=== PATIENT | female | born 1945 | race Caucasian/White ===

== ENCOUNTER 2019-08-20 15:11 | Emergency (ER) | payer MEDICARE, BC ==
[2019-08-20] MEDS ORDERED: Sodium Chloride 0.9% 10 ML Syringe FLUSH PRN (15:30)
[2019-08-20] MEDS ORDERED: Sodium Chloride 0.9% 1,000 ML IV ONE (15:31)
[2019-08-20] MEDS ORDERED: Morphine 4 MG/ML Syringe IVPUSH ONE (15:31)
[2019-08-20] MEDS ORDERED: Ondansetron 4 MG/2 ML SDV IVPUSH ONE (15:31)
[2019-08-20 15:35] VITALS: BP 168/83; PULSE 61
--- NOTE | 2019-08-20 15:49 | EDM.PDOC ---
ED HPI GENERAL MEDICAL PROBLEM - General Chief Complaint: Gastrointestinal Problem Stated Complaint: STOMACH PAIN Time Seen by Provider: 08/20/19 15:20 Source of Information: Reports: Patient History Limitations: Reports: No Limitations - History of Present Illness INITIAL COMMENTS - FREE TEXT/NARRATIVE: Pt. presents to ER with complaints of nausea, vomiting, and epigastric dis comfort. Pt. states that the symptoms started yesterday. She vomited several times yesterday but not today. She states that she did eat some waffles at lunch today that made her feel worse. She also complaints of gaggy sensation in her throat. Denies any substernal chest discomfort. No jaw or arm pain. Denies shortness of breath or palpitations. Pt. states that she thinks she "has stomach flu". 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 She is status post cholecystectomy. Pt. states that she had a BM last night. She states that it was hard. Denies any melena, hematochezia, or hematemesis. Pt. denies any cough. She has not been around any ill contacts. No fever or chills. Pt. has a history of cardiomegaly. Echo in 2019 revealed EF of 65%. No LV wall motion abnormality. Trivial tricuspid, pulmonic, and mitral valve regurgitation. Onset Date: 08/19/19 Location: Reports: Neck, Abdomen Quality: Reports: Ache, Pressure Severity: Moderate Worsens with: Reports: Eating Associated Symptoms: Reports: Loss of Appetite, Nausea/Vomiting. Denies: Confusion, Chest Pain, Cough, Diaphoresis, Fever/Chills, Seizure, Shortness of Breath, Syncope Upper Abdomen Pain Score (Numeric/FACES): 7 - Related Data Allergies Allergy/AdvReac Type Severity Reaction Status Date / Time codeine Allergy Change Verified 08/20/19 15:31 Mental Status lisinopril Allergy Cough Verified 08/20/19 15:31 Home Meds: Home Meds Calcium Carb/Vit D3/Minerals [Calcium 1,200 mg Tablet Chew] 1 each PO BID 05/17/13 [History] FA/Lycopene/Lut/MV,Ca,Iron,Min [Centrum] 1 tab PO DAILY 05/17/13 [History] Losartan [Cozaar] 50 mg PO DAILY 05/17/13 [History] Potassium Chloride [Klor-Con 8] 16 meq PO DAILY 05/17/13 [History] atorvaSTATin [Lipitor] 10 mg PO BEDTIME 05/17/13 [History] Citalopram Hydrobromide [Celexa] 20 mg PO DAILY 08/20/19 [History] Furosemide [Lasix] 40 mg PO DAILY 08/20/19 [History] Metoprolol Tartrate [Lopressor] 37.5 mg PO BID 08/20/19 [History] Past Medical History Cardiovascular History: Reports: High Cholesterol, Hypertension Psychiatric History: Reports: Anxiety, Depression Oncologic (Cancer) History: Reports: Breast - Past Surgical History Musculoskeletal Surgical History: Reports: Knee Replacement Social & Family History - Living Situation & Occupation Living situation: Reports: Occupation: Employed ED ROS GENERAL - Review of Systems Review Of Systems: See Below Constitutional: Reports: No Symptoms HEENT: Reports: No Symptoms Respiratory: Reports: No Symptoms Cardiovascular: Reports: No Symptoms Endocrine: Reports: No Symptoms GI/Abdominal: Reports: Abdominal Pain, Anorexia : Reports: No Symptoms Musculoskeletal: Reports: No Symptoms Skin: Reports: No Symptoms Neurological: Reports: No Symptoms Psychiatric: Reports: No Symptoms Hematologic/Lymphatic: Reports: No Symptoms Immunologic: Reports: No Symptoms ED EXAM, GENERAL - Physical Exam Exam: See Below Exam Limited By: No Limitations General Appearance: Alert, WD/WN, No Apparent Distress Head: Atraumatic, Normocephalic Respiratory/Chest: No Respiratory Distress, Lungs Clear, Normal Breath Sounds, No Accessory Muscle Use, Chest Non-Tender Cardiovascular: Normal Peripheral Pulses, Regular Rate, Rhythm, No Edema, No JVD, No Murmur Peripheral Pulses: 4+: Radial (R) GI/Abdominal: Soft, No Organomegaly, No Distention, Tender (tender in epigastium) (Female) Exam: Deferred Rectal (Female) Exam: Deferred Back Exam: Normal Inspection, Full Range of Motion Extremities: Normal Inspection, Normal Range of Motion, Non-Tender, No Pedal Edema, Normal Capillary Refill Neurological: Alert, Oriented, CN II-XII Intact, Normal Cognition, Normal Gait, Normal Reflexes, No Motor/Sensory Deficits Psychiatric: Normal Affect, Normal Mood Skin Exam: Warm, Dry, Intact, Normal Color, No Rash Lymphatic: No Adenopathy EKG INTERPRETATION Rhythm: NSR Sproul: Normal P-Wave: Present QRS: Normal ST-T: Normal QT: Normal Course - Vital Signs Last Recorded V/S: Last Vital Signs Temp 36.2 C 08/20/19 15:20 Pulse 61 08/20/19 15:20 Resp 18 08/20/19 15:20 BP 168/83 H 08/20/19 15:20 Pulse Ox 96 08/20/19 15:20 - Orders/Labs/Meds Orders: Active Orders 24 hr Category Date Time Status EKG Documentation Completion [RC] STAT Care 08/20/19 15:30 Active CULTURE URINE [RM] Stat Lab 08/20/19 16:44 Received Peripheral IV Insertion Adult [OM.PC] Routine Oth 08/20/19 15:31 Ordered Labs: Laboratory Tests 08/20/19 08/20/19 08/20/19 Range/Units 15:47 15:47 15:47 WBC 6.1 (4.0-10.0) x10^3/uL RBC 4.33 (4.00-5.50) x10^6/uL Hgb 13.0 (12.0-16.0) g/dL Hct 38.7 (33.0-47.0) % MCV 89.4 (78.0-93.0) fL MCH 30.0 (26.0-32.0) pg MCHC 33.6 (32.0-36.0) g/dL RDW Coeff of Maria [place] Carm[place] 12.9 (10.0-15.0) % Plt Count 219 (130-400) x10^3/uL Neut % (Auto) 58.6 (50.0-80.0) % Lymph % (Auto) 29.7 (25.0-50.0) % [place] % (Auto) 10.0 (2.0-11.0) % Eos % (Auto) 1.0 (0.0-4.0) % Baso % (Auto) 0.7 (0.2-1.2) % PT 11.4 (9.5-12.3) SEC INR 1.1 L (2.0-3.5) Sodium 145 (136-145) mmol/L Potassium 3.3 L (3.5-5.1) mmol/L Chloride 106 (98-107) mmol/L Carbon Dioxide 34 H (21-32) mmol/L Anion Gap 8.3 L (10-20) mmol/L BUN 14 (7-18) mg/dL Creatinine 0.8 (0.55-1.02) mg/dL Est Cr Clr Drug Dosing TNP Estimated GFR (MDRD) > 60 Glucose 87 (74-106) mg/dL Calcium 8.8 (8.5-10.1) mg/dL Corrected Calcium 9.44 (8.5-10.1) mg/dL Total Bilirubin 0.6 (0.2-1.0) mg/dL AST 33 (15-37) U/L ALT 42 (14-59) U/L Alkaline Phosphatase 65 (46-116) U/L Troponin I < 0.017 (<=0.056) ng/mL C-Reactive Protein 0.4 (<=0.9) mg/dL Total Protein 6.8 (6.4-8.2) g/dL Albumin 3.2 L (3.4-5.0) g/dL Globulin 3.6 Albumin/Globulin Ratio 0.89 Amylase 58 (25-115) U/L Lipase 166 (73-393) U/L Urine Color (YELLOW) POC Urine Appearance (CLEAR) POC Urine pH (5.0-8.0) Ur Specific [place] (1.005-1.030) POC Urine Protein (NEGATIVE) POC Ur Glucose (UA) (NEGATIVE) POC Urine Ketones (NEGATIVE) POC Ur Occult Blood (NEGATIVE) POC Urine Nitrite (NEGATIVE) POC Urine Bilirubin (NEGATIVE) POC Urine Urobilinogen (0.2) POC U Leukocyte Esteras (NEGATIVE) SARS-CoV-2 RNA (RT-PCR) (NEGATIVE) 08/20/19 08/20/19 Range/Units 16:44 17:49 WBC (4.0-10.0) x10^3/uL RBC (4.00-5.50) x10^6/uL Hgb (12.0-16.0) g/dL Hct (33.0-47.0) % MCV (78.0-93.0) fL MCH (26.0-32.0) pg MCHC (32.0-36.0) g/dL RDW Coeff of Maria [place] Carmen (10.0-15.0) % Plt Count (130-400) x10^3/uL Neut % (Auto) (50.0-80.0) % Lymph % (Auto) (25.0-50.0) % [place] % (Auto) (2.0-11.0) % Eos % (Auto) (0.0-4.0) % Baso % (Auto) (0.2-1.2) % PT (9.5-12.3) SEC INR (2.0-3.5) Sodium (136-145) mmol/L Potassium (3.5-5.1) mmol/L Chloride (98-107) mmol/L Carbon Dioxide (21-32) mmol/L Anion Gap (10-20) mmol/L BUN (7-18) mg/dL Creatinine (0.55-1.02) mg/dL Est Cr Clr Drug Dosing Estimated GFR (MDRD) Glucose (74-106) mg/dL Calcium (8.5-10.1) mg/dL Corrected Calcium (8.5-10.1) mg/dL Total Bilirubin (0.2-1.0) mg/dL AST (15-37) U/L ALT (14-59) U/L Alkaline Phosphatase (46-116) U/L Troponin I (<=0.056) ng/mL C-Reactive Protein (<=0.9) mg/dL Total Protein (6.4-8.2) g/dL Albumin (3.4-5.0) g/dL Globulin Albumin/Globulin Ratio Amylase (25-115) U/L Lipase (73-393) U/L Urine Color Straw H (YELLOW) POC Urine Appearance Clear (CLEAR) POC Urine pH 8.0 (5.0-8.0) Ur Specific [place] 1.010 (1.005-1.030) POC Urine Protein Negative (NEGATIVE) POC Ur Glucose (UA) Negative (NEGATIVE) POC Urine Ketones Negative (NEGATIVE) POC Ur Occult Blood Negative (NEGATIVE) POC Urine Nitrite Negative (NEGATIVE) POC Urine Bilirubin Negative (NEGATIVE) POC Urine Urobilinogen 0.2 (0.2) POC U Leukocyte Esteras Small H (NEGATIVE) SARS-CoV-2 RNA (RT-PCR) Negative (NEGATIVE) Meds: Medications Discontinued Medications Generic Name Dose Route Start Last Admin Trade Name Freq PRN Reason Stop Dose Admin Hydromorphone HCl 1 mg 08/20/19 17:02 08/20/19 17:10 Dilaudid IVPUSH 08/20/19 17:03 1 mg ONETIME ONE Administration Sodium Chloride 1,000 mls @ 1,000 mls/hr 08/20/19 15:31 08/20/19 15:53 Normal Saline IV 08/20/19 16:30 1,000 mls/hr .BOLUS ONE Administration Iopamidol 100 ml 08/20/19 16:37 08/20/19 17:15 Isovue-300 (61%) IVPUSH 08/20/19 16:38 100 ml ONETIME ONE Administration Magnesium Hydroxide 30 ml 08/20/19 18:19 08/20/19 18:29 Milk Of Magnesia PO 08/20/19 18:20 30 ml ONETIME ONE Administration Metoclopramide HCl 5 mg 08/20/19 16:34 08/20/19 17:08 Reglan IVPUSH 08/20/19 16:35 5 mg ONETIME ONE Administration Morphine Sulfate 4 mg 08/20/19 15:31 08/20/19 15:55 Morphine IVPUSH 08/20/19 15:32 4 mg ONETIME ONE Administration Ondansetron HCl 4 mg 08/20/19 15:31 08/20/19 15:53 Zofran IVPUSH 08/20/19 15:32 4 mg ONETIME ONE Administration Sodium Chloride 10 ml 08/20/19 15:30 Saline Flush FLUSH ASDIRECTED PRN Keep Vein Open - Radiology Interpretation Free Text/Narrative:: CT chest abdomen and pelvis was obtained. Small volume of non-specific fluid in pelvis. Increased stool burden. Intrahepatic and extrahepatic bile duct dilatation has mildly increased relative to previous study. No other acute findings noted. - Re-Assessments/Exams Free Text/Narrative Re-Assessment/Exam: Pt. was given a liter of NS on arrival to ER. She was given zofran 4mg IV and morphine 4 mg IV. She reported significant improvement in her discomfort. Prior to going to x-ray, pt. reported significant increase in discomfort. Pain was localized to the LUQ. No rebound tenderness or mass noted. She was given dilaudid 1 mg IV and reglan 5 mg IV. She again reported improvement in her discomfort. Departure - Departure Time of Disposition: 18:37 Disposition: Home, Self-Care 01 Clinical Impression: Constipation - Discharge Information Instructions: Constipation, Adult Referrals: Monisha Babcock MD [Primary Care Provider] - Forms: ED Department Discharge Additional Instructions: Home to rest. Start miralax 17gm once daily starting tomorrow. Increase your consumption of water. Milk of mag 30ml three times daily. Recheck in clinic in 7-10 days, sooner if not gradually improving. Sepsis Event Note (ED) - Evaluation Sepsis Screening Result: No Definite Risk - Focused Exam Vital Signs: Vital Signs Temp Pulse Resp BP Pulse Ox 08/20/19 15:20 36.2 C 61 18 168/83 H 96 - Problem List Review Problem List Initiated/Reviewed/Updated: Yes - My Orders Last 24 Hours: My Active Orders 08/20/19 15:30 EKG Documentation Completion [RC] STAT 08/20/19 15:31 Peripheral IV Insertion Adult [OM.PC] Routine 08/20/19 16:44 CULTURE URINE [RM] Stat - Assessment/Plan Last 24 Hours: My Active Orders 08/20/19 15:30 EKG Documentation Completion [RC] STAT 08/20/19 15:31 Peripheral IV Insertion Adult [OM.PC] Routine 08/20/19 16:44 CULTURE URINE [RM] Stat Plan: Home to rest. Start miralax 17gm once daily starting tomorrow. Increase your consumption of water. Milk of mag 30ml three times daily. Recheck in clinic in 7-10 days, sooner if not gradually improving.
[2019-08-20 16:16] LABS: ANION GAP 8.3 mmol/L (10-20); CHLORIDE,CL 106 mmol/L (98-107); SODIUM,NA 145 mmol/L (136-145)
[2019-08-20] MEDS ORDERED: Metoclopramide 10 MG/2 ML SDV IVPUSH ONE (16:34)
[2019-08-20] MEDS ORDERED: Iopamidol 612 MG/ML 100 ML Bottle IVPUSH ONE (16:37)
[2019-08-20] MEDS ORDERED: HYDROmorphone 1 MG/ML Syringe IVPUSH ONE (17:02)
--- NOTE | 2019-08-20 17:43 | CT ---
[id number] CT/CT Chest Abdomen Pelvis W IV EXAM: CHEST ABDOMEN AND PELVIS CT WITH CONTRAST INDICATION: Abdominal pain, back pain and vomiting. COMPARISON: Abdomen and pelvis CT July 07, 2014. No comparison chest imaging. DISCUSSION: The right lobe is mildly prominent in size and there are scattered small bilateral thyroid nodules. 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 Mild cardiomegaly. Right hilar calcified lymph nodes, a calcified right lower lobe pulmonary nodule, and splenic calcifications are consistent with antecedent granulomatous disease. The gallbladder is surgically absent. Intra and extrahepatic bile duct dilation was present on the previous exam, but has increased. For instance, the common hepatic duct measures up to 26 mm relative to the previous of 19 mm. Correlation with clinical and laboratory data is suggested to help further exclude evidence of biliary obstruction. MRCP could provide further evaluation if there is clinical concern for obstruction. Gastric bypass. 8 mm left renal cyst. Numerous diverticula of the colon without CT evidence of acute diverticulitis. Small volume nonspecific free fluid in the pelvis. Incidental bicornuate uterus. The pancreas, adrenal glands, right kidney and remaining small bowel are normal in appearance. The appendix is not identified. There are least mild to moderate degenerative changes throughout the spine and there is evidence of diffuse idiopathic skeletal hyperostosis. IMPRESSION: 1. Small volume free fluid in the pelvis is nonspecific. 2. Mildly prominent colonic stool volume. 3. Intrahepatic and extrahepatic bile duct dilation has mildly increased relative to the previous study. These changes can be seen postcholecystectomy, but correlation with clinical and laboratory data is suggested to further exclude evidence of biliary obstruction. Morgan Garcia MD 08/20/19 [id number] Thank you for allowing us to participate in the care of your patient.
[2019-08-20] MEDS ORDERED: Magnesium Hydroxide 400 MG/5 ML Susp 30 ML Cup PO ONE (18:19)
== END 2019-08-20 18:37 | disposition home or self-care (01) ==
LOC: VM.ED 15:11
DX: K59.00 Constipation, unspecified (principal); R11.2 Nausea with vomiting, unspecified; I10 Essential (primary) hypertension; E78.00 Pure hypercholesterolemia, unspecified; F41.9 Anxiety disorder, unspecified; F32.9 Major depressive disorder, single episode, unspecified; Z20.828 Contact with and (suspected) exposure to other viral communicable diseases; Z88.5 Allergy status to narcotic agent; Z88.8 Allergy status to other drugs, medicaments and biological substances; Z79.899 Other long term (current) drug therapy
CPT/HCPCS: 71260; 74177; 80053; 81002; 82150; 83690; 84484; 85025; 85610; 86140; 87086; 93005; 93010; 96361; 96374; 96375; 99284-25; 99284-GF; A9270-GY; J1170; J2270; J2405; J2765; J7030; Q9967; U0002

== ENCOUNTER 2021-01-27 07:43 | Emergency (ER) | payer MEDICARE, BC ==
--- NOTE | 2021-01-27 08:40 | CT ---
[id number] CT/CT Head Stroke Protocol Exam: CT Head Stroke Protocol Clinical Data: NEUROLOGIC DEFICIT COMPARISON: NO PREVIOUS SIMILAR EXAM IS AVAILABLE FINDINGS: There is no mass or mass effect There is no hemorrhage or hydrocephalus There are no extra-axial fluid collections There are no sites of abnormal attenuation. There is no hyperdense middle cerebral artery sign IMPRESSION: NEGATIVE PLAIN CT BRAIN REPORT CALLED AT TIME OF EXAM Zay Vail MD 01/27/21 0838 Thank you for allowing us to participate in the care of your patient.
--- NOTE | 2021-01-27 08:48 | EDM.PDOC ---
ED HPI GENERAL MEDICAL PROBLEM - General Chief Complaint: Neuro Symptoms/Deficits Stated Complaint: DIZZY Time Seen by Provider: 01/27/21 08:00 Source of Information: Reports: Patient, Family History Limitations: Reports: No Limitations - History of Present Illness INITIAL COMMENTS - FREE TEXT/NARRATIVE: Patient states about 615 this morning when she just got into work she had a sharp sudden stabbing pain that she rated a 12 out of 10 just behind her left ear area with a sudden onset of lightheadedness and dizziness to the point she became unsteady and almost fell except for a coworker helping her to get to the counter. She was able to walk with assistance and sit down and the dizziness continued along with the pain and she also had a few seconds of chest pressure midsternal nonradiating that she rated probably about a 4 out of 10 . She denies anything like this happening in the past states she got up at 5 this morning drank a cup of cappuccino and felt fine until the symptoms above happened. She still states she has a mild pain now that a 2 out of 10. No chest pain positive dizziness lightheadedness but is not as bad she denies any vision change change or loss of speech weakness no numbness or tingling. Says she feels much better now she has no other complaints at this time She has a significant stroke family history Onset: Sudden Duration: Minutes: Location: Reports: Head, Chest Quality: Reports: Stabbing Severity: Severe Improves with: Reports: Other (time ) Associated Symptoms: Reports: Headaches. Denies: Confusion, Chest Pain, Diaphoresis, Loss of Appetite, Nausea/Vomiting, Shortness of Breath, Weakness Left Head Pain Score (Numeric/FACES): 2 - Related Data Allergies Allergy/AdvReac Type Severity Reaction Status Date / Time codeine Allergy Change Verified 08/20/19 15:31 Mental Status lisinopril Allergy Cough Verified 08/20/19 15:31 Home Meds: Home Meds Calcium Carb/Vit D3/Minerals [Calcium 1,200 mg Tablet Chew] 1 each PO BID 05/17/13 [History] FA/Lycopene/Lut/MV,Ca,Iron,Min [Centrum] 1 tab PO DAILY 05/17/13 [History] Losartan [Cozaar] 50 mg PO DAILY 05/17/13 [History] Potassium Chloride [Klor-Con 8] 16 meq PO DAILY 05/17/13 [History] atorvaSTATin [Lipitor] 10 mg PO BEDTIME 05/17/13 [History] Citalopram Hydrobromide [Celexa] 20 mg PO DAILY 08/20/19 [History] Furosemide [Lasix] 40 mg PO DAILY 08/20/19 [History] Metoprolol Tartrate [Lopressor] 37.5 mg PO BID 08/20/19 [History] Past Medical History Cardiovascular History: Reports: High Cholesterol, Hypertension Psychiatric History: Reports: Anxiety, Depression Oncologic (Cancer) History: Reports: Breast - Past Surgical History Musculoskeletal Surgical History: Reports: Knee Replacement Social & Family History - Living Situation & Occupation Living situation: Reports: Occupation: Employed ED ROS GENERAL - Review of Systems Review Of Systems: See Below Constitutional: Reports: No Symptoms HEENT: Reports: No Symptoms. Denies: Ear Discharge, Ear Pain, Eye Pain, Vertigo, Vision Change Respiratory: Reports: No Symptoms Cardiovascular: Reports: Chest Pain, Lightheadedness. Denies: Dyspnea on Exertion, Edema, Palpitations Endocrine: Reports: No Symptoms GI/Abdominal: Reports: No Symptoms : Reports: No Symptoms Musculoskeletal: Reports: No Symptoms Skin: Reports: No Symptoms Neurological: Reports: Dizziness, Headache. Denies: Confusion, Numbness, Paresthesia, Pre-Existing Deficit, Seizure, Syncope, Tingling, Tremors, Trouble Speaking, Difficulty Walking, Weakness, Change in Speech, Gait Disturbance Psychiatric: Reports: No Symptoms Hematologic/Lymphatic: Reports: No Symptoms Immunologic: Reports: No Symptoms ED EXAM, NEURO - Physical Exam Exam: See Below Exam Limited By: No Limitations General Appearance: Alert, WD/WN, No Apparent Distress Eye Exam: Bilateral Eye: EOMI, Normal Inspection, PERRL Ears: Normal External Exam, Normal Canal, Hearing Grossly Normal, Normal TMs Nose: Normal Inspection, Normal Mucosa, No Blood Throat/Mouth: Normal Inspection, Normal Lips, Normal Teeth, Normal Gums, Normal Oropharynx, Normal Voice, No Airway Compromise Head Exam: Atraumatic, Normocephalic Neck: Normal Inspection, Supple, Non-Tender, Full Range of Motion Respiratory/Chest: No Respiratory Distress, Lungs Clear, Normal Breath Sounds, No Accessory Muscle Use, Chest Non-Tender Cardiovascular: Normal Peripheral Pulses, Regular Rate, Rhythm, No Edema, No Gallop, No JVD, No Murmur, No Rub GI/Abdominal: Normal Bowel Sounds, Soft, Non-Tender, No Organomegaly, No Distention. No: Guarding, Rigid, Rebound, Tender Neurological: Alert, Normal Mood/Affect, Normal Dorsiflexion, CN II-XII Intact, Normal Plantar Flexion, Normal Gait, Normal Reflexes, No Motor/Sensory Deficits, Oriented x 3, Other (Patient has equal student finance advisor bilateral equal facial sensation bilateral negative pronator sway strength graded 5 of 5 upper lower bilateral she does have some mild unsteadiness with [id number]) Back Exam: Normal Inspection, Full Range of Motion Extremities: Normal Inspection, Normal Range of Motion, Non-Tender, No Pedal Edema, Normal Capillary Refill Psychiatric: Normal Affect, Normal Mood Skin Exam: Warm, Dry, Intact, Normal Color, No Rash #1 Interpretation EKG Date: 01/27/21 Time: 08:25 Rhythm: NSR [place]: Normal P-Wave: Present QRS: Normal ST-T: Normal QT: Normal *Q Meaningful Use (ADM) - VTE *Q VTE Mechanical Contraindications *Q: Tx/Proc Refused byPt (Patient has no need for VTE protocol) Course - Vital Signs Text/Narrative:: Discussed head CT with the patient no acute findings noted discussed lab work with patient in regards to hypokalemia. She was given 40 mg potassium 4 mg Mag- Ox. Discuss further need for further evaluation that we could obtain here with a CTA head after speaking with one of the neurologist Dr. Angelo at [facility]. In regards to the timeframe of obtaining a CTA and the read with the patient's history I recommended that she be transferred for further evaluation and further work-up. At this time Dr. Werner through the ER will accept transfer. Last Recorded V/S: Last Vital Signs Temp 35.6 C L 01/27/21 07:45 Pulse 49 L 01/27/21 09:44 Resp 16 01/27/21 09:44 BP 179/86 H 01/27/21 09:44 Pulse Ox 98 01/27/21 09:43 - Orders/Labs/Meds Orders: Active Orders 24 hr Category Date Time Status CULTURE URINE [RM] Urgent Lab 01/27/21 08:20 Received Labs: Laboratory Tests 12/13/21 12/13/21 12/13/21 Range/Units 08:20 08:24 08:24 WBC 6.4 (4.0-10.0) x10^3/uL RBC 4.53 (4.00-5.50) x10^6/uL Hgb 13.7 (12.0-16.0) g/dL Hct 40.5 (33.0-47.0) % MCV 89.4 (78.0-93.0) fL MCH 30.2 (26.0-32.0) pg MCHC 33.8 (32.0-36.0) g/dL RDW Coeff of [place] 12.6 (10.0-15.0) % Plt Count 214 (130-400) x10^3/uL Immature Gran % (Auto) 0.20 (0.00-0.43) % Neut % (Auto) 68.5 (50.0-80.0) % Lymph % (Auto) 21.9 L (25.0-50.0) % [place] % (Auto) 7.8 (2.0-11.0) % Eos % (Auto) 1.3 (0.0-4.0) % Baso % (Auto) 0.3 (0.2-1.2) % Neut # (Auto) 4.4 (1.8-7.7) x10^3/uL Lymph # (Auto) 1.4 (1.0-4.8) x10^3/uL [place] # (Auto) 0.5 (0.0-0.8) x10^3/uL Eos # (Auto) 0.1 (0.0-0.5) x10^3/uL Baso # (Auto) 0.0 (0.0-0.2) x10^3/uL Immature Gran # (Auto) 0.01 (0.00-0.07) x10^3/uL PT (9.9-12.5) SEC INR (2.0-3.5) APTT 25.2 L (25.6-32.8) SEC Sodium (136-145) mmol/L Potassium (3.5-5.1) mmol/L Chloride (98-107) mmol/L Carbon Dioxide (21-32) mmol/L Anion Gap (5-15) mmol/L BUN (7-18) mg/dL Creatinine (0.55-1.02) mg/dL Est Cr Clr Drug Dosing mL/min Estimated GFR (MDRD) Glucose (70-99) mg/dL POC Glucose (70-99) mg/dL Calcium (8.5-10.1) mg/dL Corrected Calcium (8.5-10.1) mg/dL Total Bilirubin (0.2-1.0) mg/dL AST (15-37) U/L ALT (14-59) U/L Alkaline Phosphatase (46-116) U/L Troponin I High Sens (<=51) ng/L Total Protein (6.4-8.2) g/dL Albumin (3.4-5.0) g/dL Globulin Albumin/Globulin Ratio Urine Color Light yellow (YELLOW) Urine Appearance Slightly cloudy H (CLEAR) Urine pH 6.5 (5.0-8.0) Ur Specific [place] 1.010 Urine Protein Negative (NEGATIVE) mg/dL Urine Glucose (UA) Negative (NEGATIVE) mg/dL Urine Ketones Negative (NEGATIVE) mg/dL Urine Occult Blood Negative (NEGATIVE) Urine Nitrite Negative (NEGATIVE) Urine Bilirubin Negative (NEGATIVE) Urine Urobilinogen 0.2 (0.2) EU/dL Ur Leukocyte Esterase Moderate H (NEGATIVE) Urine RBC 0-5 (NOT SEEN) /HPF Urine WBC 10-20 H (NOT SEEN) /HPF Ur Squamous Epith Cells Few H (NOT SEEN) /HPF Urine Bacteria Few H (NOT SEEN) /HPF Urine Mucus Occasional H (NOT SEEN) /LPF 01/27/21 01/27/21 01/27/21 Range/Units 08:24 08:24 08:24 WBC (4.0-10.0) x10^3/uL RBC (4.00-5.50) x10^6/uL Hgb (12.0-16.0) g/dL Hct (33.0-47.0) % MCV (78.0-93.0) fL MCH (26.0-32.0) pg MCHC (32.0-36.0) g/dL RDW Coeff of [place] (10.0-15.0) % Plt Count (130-400) x10^3/uL Immature Gran % (Auto) (0.00-0.43) % Neut % (Auto) (50.0-80.0) % Lymph % (Auto) (25.0-50.0) % [place] % (Auto) (2.0-11.0) % Eos % (Auto) (0.0-4.0) % Baso % (Auto) (0.2-1.2) % Neut # (Auto) (1.8-7.7) x10^3/uL Lymph # (Auto) (1.0-4.8) x10^3/uL [place] # (Auto) (0.0-0.8) x10^3/uL Eos # (Auto) (0.0-0.5) x10^3/uL Baso # (Auto) (0.0-0.2) x10^3/uL Immature Gran # (Auto) (0.00-0.07) x10^3/uL PT 11.1 (9.9-12.5) SEC INR 1.0 L (2.0-3.5) APTT (25.6-32.8) SEC Sodium 146 H (136-145) mmol/L Potassium 2.8 L* (3.5-5.1) mmol/L Chloride 107 (98-107) mmol/L Carbon Dioxide 31 (21-32) mmol/L Anion Gap 10.8 (5-15) mmol/L BUN 8 (7-18) mg/dL Creatinine 0.7 (0.55-1.02) mg/dL Est Cr Clr Drug Dosing 74.83 mL/min Estimated GFR (MDRD) > 60 Glucose 78 (70-99) mg/dL POC Glucose 75 (70-99) mg/dL Calcium 9.0 (8.5-10.1) mg/dL Corrected Calcium 9.4 (8.5-10.1) mg/dL Total Bilirubin 0.7 (0.2-1.0) mg/dL AST 31 (15-37) U/L ALT 34 (14-59) U/L Alkaline Phosphatase 73 (46-116) U/L Troponin I High Sens 8 (<=51) ng/L Total Protein 7.3 (6.4-8.2) g/dL Albumin 3.5 (3.4-5.0) g/dL Globulin 3.8 Albumin/Globulin Ratio 0.92 Urine Color (YELLOW) Urine Appearance (CLEAR) Urine pH (5.0-8.0) Ur Specific [place] Urine Protein (NEGATIVE) mg/dL Urine Glucose (UA) (NEGATIVE) mg/dL Urine Ketones (NEGATIVE) mg/dL Urine Occult Blood (NEGATIVE) Urine Nitrite (NEGATIVE) Urine Bilirubin (NEGATIVE) Urine Urobilinogen (0.2) EU/dL Ur Leukocyte Esterase (NEGATIVE) Urine RBC (NOT SEEN) /HPF Urine WBC (NOT SEEN) /HPF Ur Squamous Epith Cells (NOT SEEN) /HPF Urine Bacteria (NOT SEEN) /HPF Urine Mucus (NOT SEEN) /LPF Meds: Medications Discontinued Medications Generic Name Dose Route Start Last Admin Trade Name Freq PRN Reason Stop Dose Admin Magnesium Oxide 400 mg 01/27/21 09:02 01/27/21 09:50 Magnesium Oxide 400 Mg Tab PO 01/27/21 09:03 400 mg ONETIME ONE Administration Potassium Chloride 40 meq 01/27/21 09:01 01/27/21 09:50 Potassium Chloride 20 Meq Tab.Er PO 01/27/21 09:02 40 meq ONETIME ONE Administration Departure - Departure Time of Disposition: 09:45 Disposition: DC/Tfer to [facility] 02 Clinical Impression: Hypokalemia, Chest pressure, Dizziness, Head pain - Discharge Information Referrals: Monisha Babcock MD [Primary Care Provider] - Forms: ED Department Discharge Sepsis Event Note (ED) - Evaluation Sepsis Screening Result: No Definite Risk - Focused Exam Vital Signs: Vital Signs Temp Pulse Resp BP Pulse Ox 01/27/21 09:44 49 L 16 179/86 H 01/27/21 09:43 48 L 16 180/86 H 98 01/27/21 09:30 50 L 16 182/84 H 98 01/27/21 09:15 49 L 16 184/83 H 97 01/27/21 08:47 53 L 16 166/72 H 97 01/27/21 08:20 51 L 16 172/75 H 97 01/27/21 08:05 52 L 16 156/70 H 97 01/27/21 07:45 35.6 C L 52 L 16 189/76 H 9 L - Problem List & Annotations (1) Hypokalemia SNOMED Code(s): 58750638 Code(s): E87.6 - HYPOKALEMIA Status: Acute Current Visit: Yes (2) Chest pressure SNOMED Code(s): 098752064 Code(s): R07.89 - OTHER CHEST PAIN Status: Acute Current Visit: Yes (3) Dizziness SNOMED Code(s): 909384635, 959511879 Code(s): R42 - DIZZINESS AND GIDDINESS Status: Acute Current Visit: Yes (4) Head pain SNOMED Code(s): 07873333 Code(s): R51.9 - HEADACHE, UNSPECIFIED Status: Acute Current Visit: Yes - My Orders Last 24 Hours: My Active Orders 01/27/21 08:20 CULTURE URINE [RM] Urgent - Assessment/Plan Last 24 Hours: My Active Orders 01/27/21 08:20 CULTURE URINE [RM] Urgent
[2021-01-27 08:52] LABS: CHLORIDE,CL 107 mmol/L (98-107); SODIUM,NA 146 mmol/L (136-145)
[2021-01-27 08:56] LABS: ANION GAP 10.8 mmol/L (5-15)
[2021-01-27] MEDS ORDERED: Magnesium Oxide 400 MG Tab PO ONE (09:02)
[2021-01-27 09:45] VITALS: BP 179/86; PULSE 49
[2021-01-27] MEDS: Potassium Chloride 20 MEQ Tab.ER PO ONE ×2 (09:50→09:56)
[2021-01-27] MEDS ORDERED: Potassium Chloride 10% 20 MEQ/15 ML Soln 15 ML UD Cup PO ONE (10:00)
== END 2021-01-27 10:05 | disposition short-term general hospital (02) ==
LOC: VM.ED 07:43
DX: E87.6 Hypokalemia (principal); R07.89 Other chest pain; R42 Dizziness and giddiness; R51.9 Headache, unspecified; E78.00 Pure hypercholesterolemia, unspecified; I10 Essential (primary) hypertension; Z88.5 Allergy status to narcotic agent; Z88.8 Allergy status to other drugs, medicaments and biological substances; Z79.899 Other long term (current) drug therapy
CPT/HCPCS: 70450; 80053; 81001; 82947; 84484; 85025; 85610; 85730; 87086; 87088; 87186; 93005; 93010; 99284; 99285-25; A9270-GY

== ENCOUNTER 2022-04-03 14:54 | Emergency (ER) | payer OTHER, MEDICARE, BC ==
[2022-04-03 16:09] VITALS: BP 156/71; PULSE 51
== END 2022-04-03 16:10 | disposition home or self-care (01) ==
LOC: VM.ED 14:54
DX: S70.02XA Contusion of left hip, initial encounter (principal); I48.91 Unspecified atrial fibrillation; I11.0 Hypertensive heart disease with heart failure; I50.9 Heart failure, unspecified; E78.00 Pure hypercholesterolemia, unspecified; Z88.5 Allergy status to narcotic agent; Z88.8 Allergy status to other drugs, medicaments and biological substances; Z79.899 Other long term (current) drug therapy; W00.0XXA Fall on same level due to ice and snow, initial encounter
CPT/HCPCS: 99283

== ENCOUNTER 2022-11-12 18:41 | Emergency (ER) | payer MEDICARE, BC ==
[2022-11-12] MEDS: Acetaminophen 500 MG Tab PO ONE (19:01)
[2022-11-12 19:43] VITALS: BP 176/78; PULSE 70
[2022-11-12] MEDS: Meclizine 25 MG Tab PO ONE (20:16)
== END 2022-11-12 20:25 | disposition home or self-care (01) ==
LOC: VM.ED 18:41
DX: S09.90XA Unspecified injury of head, initial encounter (principal); S70.02XA Contusion of left hip, initial encounter; R42 Dizziness and giddiness; E78.00 Pure hypercholesterolemia, unspecified; I11.0 Hypertensive heart disease with heart failure; I50.9 Heart failure, unspecified; Z79.899 Other long term (current) drug therapy; Z88.5 Allergy status to narcotic agent; Z88.8 Allergy status to other drugs, medicaments and biological substances; W01.10XA Fall on same level from slipping, tripping and stumbling with subsequent striking against unspecified object, initial encounter
CPT/HCPCS: 70450; 73501; 99284; 99285; A9270

== ENCOUNTER 2023-01-30 09:19 | Emergency (ER) | payer OTHER, MEDICARE, BC ==
[2023-01-30] MEDS ORDERED: Acetaminophen/HYDROcodone 325-5 MG Tab PO ONE (09:26)
[2023-01-30 18:27] VITALS: BP 160/84; PULSE 68
== END 2023-01-30 13:30 | disposition home or self-care (01) ==
LOC: VM.ED 09:19
DX: S06.0X0A Concussion without loss of consciousness, initial encounter (principal); S52.501A Unspecified fracture of the lower end of right radius, initial encounter for closed fracture; S52.601A Unspecified fracture of lower end of right ulna, initial encounter for closed fracture; S20.211A Contusion of right front wall of thorax, initial encounter; I11.0 Hypertensive heart disease with heart failure; I50.9 Heart failure, unspecified; E78.00 Pure hypercholesterolemia, unspecified; I48.91 Unspecified atrial fibrillation; Z79.899 Other long term (current) drug therapy; Z88.5 Allergy status to narcotic agent; Z88.8 Allergy status to other drugs, medicaments and biological substances; W01.198A Fall on same level from slipping, tripping and stumbling with subsequent striking against other object, initial encounter
CPT/HCPCS: 29105; 70450; 71046; 73110-RT; 73140-F3; 99284

== ENCOUNTER 2024-01-21 13:28 | Inpatient (IN) | payer OTHER, MEDICARE, BC ==
[2024-01-21] MEDS: fentaNYL 100 MCG/2 ML SDV IVPUSH ONE (15:55)
[2024-01-21] MEDS: Morphine 4 MG/ML Syringe IVPUSH ONE (17:25)
[2024-01-21] MEDS ORDERED: Ondansetron 4 MG Tab.DIS PO PRN (17:45)
[2024-01-21] MEDS: oxyCODONE 5 MG Tab PO PRN (20:06)
[2024-01-22] MEDS: Morphine 2 MG/ML SYRINGE IVPUSH PRN (09:17)
[2024-01-22] MEDS: Acetaminophen 325 MG Tab PO PRN (09:20)
[2024-01-22] MEDS ORDERED: Docusate Sodium 100 MG Cap PO PRN (10:19)
[2024-01-22] MEDS: Empagliflozin 10 MG Tab PO SCH (11:08)
[2024-01-22] MEDS: Potassium Chloride 20 MEQ Tab.ER PO SCH (11:08)
[2024-01-22] MEDS: oxyCODONE 5 MG Tab PO SCH (11:09)
[2024-01-22] MEDS: tiZANidine 4 MG Tab PO PRN (11:10)
[2024-01-22] MEDS: Citalopram 10 MG Tab PO SCH (11:15)
[2024-01-22 13:37] LABS: HEMATOCRIT 33.7 % (33.0-47.0); HEMOGLOBIN 11.3 g/dL (12.0-16.0); MEAN CORPUSCULAR HEMOGLOBIN 30.5 pg (26.0-32.0); MEAN CORPUSCULAR HGB CONC 33.5 g/dL (32.0-36.0); MEAN CORPUSCULAR VOLUME 91.1 fL (78.0-93.0); RED BLOOD CELL COUNT 3.7 x10^6/uL (4.00-5.50); WHITE BLOOD CELL COUNT,WBC 6.6 x10^3/uL (4.0-10.0)
[2024-01-22 13:51] LABS: CALCIUM 8.6 mg/dL (8.5-10.1); CREATININE 0.8 mg/dL (0.55-1.02); EST CRCL DRUG DOSING (CG) 62.52 mL/min; POTASSIUM,K 3.4 mmol/L (3.5-5.1)
[2024-01-22 13:52] LABS: ANION GAP 10.4 mmol/L (5-15)
[2024-01-22] MEDS: Multivitamin Tab PO SCH (20:28)
[2024-01-22] MEDS: Enoxaparin 40 MG/0.4 ML Syringe SUBCUT SCH (20:28)
[2024-01-22] MEDS: Metoprolol Tartrate 25 MG Tab PO SCH (20:28)
[2024-01-22] MEDS ORDERED: IRON PO SCH (21:00)
[2024-01-22] MEDS ORDERED: MULTIVIT MIN PO SCH (21:00)
[2024-01-22] MEDS ORDERED: [UNRECOGNIZED DRUG - OTHER] PO SCH (21:00)
[2024-01-22] MEDS ORDERED: FOLIC ACID PO SCH (21:00)
[2024-01-23 07:59] LABS: HEMATOCRIT 37.2 % (33.0-47.0); HEMOGLOBIN 12.4 g/dL (12.0-16.0); MEAN CORPUSCULAR HGB CONC 33.3 g/dL (32.0-36.0); MEAN CORPUSCULAR VOLUME 90.1 fL (78.0-93.0); RED BLOOD CELL COUNT 4.13 x10^6/uL (4.00-5.50)
[2024-01-23] MEDS: Losartan 50 MG Tab PO SCH (08:47)
[2024-01-23] MEDS: Oxybutynin 5 MG Tab PO SCH (08:47)
[2024-01-23] MEDS: atorvaSTATin 10 MG Tab PO SCH (08:47)
[2024-01-23] MEDS: Furosemide 40 MG Tab PO SCH (08:47)
[2024-01-23] MEDS: oxyCODONE 5 MG Tab PO PRN (08:52)
[2024-01-23] MEDS: tiZANidine 4 MG Tab PO PRN (08:53)
[2024-01-23] MEDS ORDERED: [UNRECOGNIZED DRUG - OTHER] PO SCH (09:00)
[2024-01-23] MEDS ORDERED: IRON PO SCH (09:00)
[2024-01-23] MEDS ORDERED: FOLIC ACID PO SCH (09:00)
[2024-01-23] MEDS ORDERED: MULTIVIT MIN PO SCH (09:00)
[2024-01-25] MEDS ORDERED: Polyethylene Glycol 3350 Powder 17 GM Packet PO PRN (09:28)
[2024-01-25] MEDS: Docusate Sodium 100 MG Cap PO SCH (09:34)
[2024-01-25 09:39] LABS: BASOPHILS PERCENT AUTO 0.3 % (0.2-1.2); EOSINOPHILS ABSOLUTE AUTO 0.1 x10^3/uL (0.0-0.5); HEMATOCRIT 37.9 % (33.0-47.0); HEMOGLOBIN 12.7 g/dL (12.0-16.0); IMMATURE GRAN ABSOLUTE AUTO 0.01 x10^3/uL (0.00-0.07); LYMPHOCYTES ABSOLUTE AUTO 1.3 x10^3/uL (1.0-4.8); LYMPHOCYTES PERCENT AUTO 18.5 % (25.0-50.0); MEAN CORPUSCULAR HEMOGLOBIN 30.5 pg (26.0-32.0); MEAN CORPUSCULAR HGB CONC 33.5 g/dL (32.0-36.0); MEAN CORPUSCULAR VOLUME 91.1 fL (78.0-93.0); MONOCYTES ABSOLUTE AUTO 0.7 x10^3/uL (0.0-0.8); MONOCYTES PERCENT AUTO 9.9 % (2.0-11.0); NEUTROPHILS ABSOLUTE AUTO 4.8 x10^3/uL (1.8-7.7); NEUTROPHILS PERCENT AUTO 69.2 % (50.0-80.0); PLATELET COUNT,PLT 163 x10^3/uL (130-400); RED BLOOD CELL COUNT 4.16 x10^6/uL (4.00-5.50)
[2024-01-25 09:56] LABS: A/G RATIO 0.75; ALBUMIN 2.7 g/dL (3.4-5.0); BILIRUBIN TOTAL 0.9 mg/dL (0.2-1.0); CALCIUM 8.7 mg/dL (8.5-10.1); CREATININE 0.8 mg/dL (0.55-1.02); EST CRCL DRUG DOSING (CG) 62.52 mL/min; POTASSIUM,K 3.5 mmol/L (3.5-5.1); PROTEIN TOTAL,TP 6.3 g/dL (6.4-8.2)
[2024-01-25 09:58] LABS: ANION GAP 10.5 mmol/L (5-15)
[2024-01-25] MEDS: Acetaminophen 325 MG Tab PO SCH (10:26)
[2024-01-25] MEDS: amLODIPine 2.5 MG Tab PO SCH (10:41)
[2024-01-25 10:53] VITALS: BP 173/77; PULSE 62
[2024-01-25] MEDS ORDERED: Meclizine 25 MG Tab PO PRN (11:44)
== END 2024-01-25 12:18 | disposition swing bed (61) | DRG 563 ==
LOC: VM.ED 13:28 → VM.MS 17:37 → OBSVTOIN 01-22 10:00
PROVIDERS: ADMIT Nurse Practitioner Family; ATTEND Family Medicine
DX: S42.212A Unspecified displaced fracture of surgical neck of left humerus, initial encounter for closed fracture (principal); I50.32 Chronic diastolic (congestive) heart failure; W01.0XXA Fall on same level from slipping, tripping and stumbling without subsequent striking against object, initial encounter; I11.0 Hypertensive heart disease with heart failure; E78.00 Pure hypercholesterolemia, unspecified; I50.9 Heart failure, unspecified; N39.3 Stress incontinence (female) (male); K21.9 Gastro-esophageal reflux disease without esophagitis; G43.909 Migraine, unspecified, not intractable, without status migrainosus; F41.9 Anxiety disorder, unspecified; F32.A Depression, unspecified; Z96.659 Presence of unspecified artificial knee joint; F15.90 Other stimulant use, unspecified, uncomplicated; I48.0 Paroxysmal atrial fibrillation; I73.9 Peripheral vascular disease, unspecified; R73.9 Hyperglycemia, unspecified; G60.9 Hereditary and idiopathic neuropathy, unspecified; M81.0 Age-related osteoporosis without current pathological fracture; R05.3 Chronic cough; I95.1 Orthostatic hypotension; Y93.89 Activity, other specified; Y92.000 Kitchen of unspecified non-institutional (private) residence as the place of occurrence of the external cause; Z88.5 Allergy status to narcotic agent; Z98.890 Other specified postprocedural states; Z88.8 Allergy status to other drugs, medicaments and biological substances; Z86.19 Personal history of other infectious and parasitic diseases; Z98.84 Bariatric surgery status; Z79.02 Long term (current) use of antithrombotics/antiplatelets; Z79.899 Other long term (current) drug therapy
CPT/HCPCS: 36415; 73030-LT; 73070-LT; 73100-LT; 73200-LT; 80048; 80053; 85025; 85027; 96374; 96375; 97116-GP; 97161-GP; 97166-GO; 97530-GP; 97535-GO; 99284; 99285-25; A9270-GY; J1650; J2270; J3010; J3360

== ENCOUNTER 2024-01-25 10:25 | Inpatient (IN) | payer OTHER, MEDICARE, BC ==
[2024-01-25] MEDS ORDERED: Acetaminophen 325 MG Tab PO PRN (13:19)
[2024-01-25] MEDS ORDERED: Meclizine 25 MG Tab PO PRN (13:19)
[2024-01-25] MEDS ORDERED: Morphine 2 MG/ML SYRINGE IVPUSH PRN (13:19)
[2024-01-25] MEDS: oxyCODONE 5 MG Tab PO PRN (14:37)
[2024-01-25] MEDS: Enoxaparin 40 MG/0.4 ML Syringe SUBCUT SCH (20:19)
[2024-01-25] MEDS: Metoprolol Tartrate 25 MG Tab PO SCH (20:20)
[2024-01-25] MEDS: Docusate Sodium 100 MG Cap PO SCH (20:20)
[2024-01-25] MEDS: Acetaminophen 325 MG Tab PO SCH (20:20)
[2024-01-25] MEDS: tiZANidine 4 MG Tab PO PRN (20:20)
[2024-01-25] MEDS: Multivitamin Tab PO SCH (20:20)
[2024-01-26] MEDS: Alendronate 70 MG Tab PO SCH (06:17)
[2024-01-26 06:52] LABS: HEMATOCRIT 37.9 % (33.0-47.0); HEMOGLOBIN 12.7 g/dL (12.0-16.0); MEAN CORPUSCULAR HEMOGLOBIN 30.5 pg (26.0-32.0); MEAN CORPUSCULAR HGB CONC 33.5 g/dL (32.0-36.0); MEAN CORPUSCULAR VOLUME 91.1 fL (78.0-93.0); RED BLOOD CELL COUNT 4.16 x10^6/uL (4.00-5.50); WHITE BLOOD CELL COUNT,WBC 5.3 x10^3/uL (4.0-10.0)
[2024-01-26] MEDS: Citalopram 10 MG Tab PO SCH (08:39)
[2024-01-26] MEDS: Losartan 50 MG Tab PO SCH (08:40)
[2024-01-26] MEDS: Empagliflozin 10 MG Tab PO SCH (08:40)
[2024-01-26] MEDS: Potassium Chloride 20 MEQ Tab.ER PO SCH (08:40)
[2024-01-26] MEDS: Oxybutynin 5 MG Tab.ER PO SCH (08:40)
[2024-01-26] MEDS: amLODIPine 2.5 MG Tab PO SCH (08:40)
[2024-01-26] MEDS: atorvaSTATin 10 MG Tab PO SCH (08:40)
[2024-01-26] MEDS: Polyethylene Glycol 3350 Powder 17 GM Packet PO PRN (08:41)
[2024-01-26] MEDS: Furosemide 40 MG Tab PO SCH (08:41)
[2024-01-29 08:23] LABS: HEMATOCRIT 35.6 % (33.0-47.0); MEAN CORPUSCULAR HEMOGLOBIN 30.5 pg (26.0-32.0); MEAN CORPUSCULAR HGB CONC 33.7 g/dL (32.0-36.0); MEAN CORPUSCULAR VOLUME 90.4 fL (78.0-93.0); RED BLOOD CELL COUNT 3.94 x10^6/uL (4.00-5.50)
[2024-01-30] MEDS: Ondansetron 4 MG Tab.DIS PO PRN (12:37)
[2024-02-01 06:57] LABS: HEMATOCRIT 34.7 % (33.0-47.0); HEMOGLOBIN 11.7 g/dL (12.0-16.0); MEAN CORPUSCULAR HEMOGLOBIN 30.6 pg (26.0-32.0); MEAN CORPUSCULAR HGB CONC 33.7 g/dL (32.0-36.0); MEAN CORPUSCULAR VOLUME 90.8 fL (78.0-93.0); RED BLOOD CELL COUNT 3.82 x10^6/uL (4.00-5.50); WHITE BLOOD CELL COUNT,WBC 5.6 x10^3/uL (4.0-10.0)
[2024-02-01 07:13] LABS: A/G RATIO 0.82; ALBUMIN 2.7 g/dL (3.4-5.0); BILIRUBIN TOTAL 0.7 mg/dL (0.2-1.0); CALCIUM 8.8 mg/dL (8.5-10.1); CREATININE 0.6 mg/dL (0.55-1.02); EST CRCL DRUG DOSING (CG) 83.36 mL/min; POTASSIUM,K 3.5 mmol/L (3.5-5.1)
[2024-02-01 07:14] LABS: ANION GAP 9.5 mmol/L (5-15)
[2024-02-03 16:58] VITALS: BP 158/73; PULSE 60
== END 2024-02-03 16:45 | disposition home health service (06) | DRG 560 ==
LOC: VM.MS 11:45
PROVIDERS: ADMIT Family Medicine; ATTEND Family Medicine
DX: S42.212D Unspecified displaced fracture of surgical neck of left humerus, subsequent encounter for fracture with routine healing (principal); I50.32 Chronic diastolic (congestive) heart failure; R53.1 Weakness; M81.0 Age-related osteoporosis without current pathological fracture; F41.9 Anxiety disorder, unspecified; K59.00 Constipation, unspecified; E78.00 Pure hypercholesterolemia, unspecified; I11.0 Hypertensive heart disease with heart failure; K21.9 Gastro-esophageal reflux disease without esophagitis; E11.42 Type 2 diabetes mellitus with diabetic polyneuropathy; G43.909 Migraine, unspecified, not intractable, without status migrainosus; F32.A Depression, unspecified; Z96.659 Presence of unspecified artificial knee joint; I48.0 Paroxysmal atrial fibrillation; E11.51 Type 2 diabetes mellitus with diabetic peripheral angiopathy without gangrene; E11.65 Type 2 diabetes mellitus with hyperglycemia; M48.061 Spinal stenosis, lumbar region without neurogenic claudication; G60.9 Hereditary and idiopathic neuropathy, unspecified; N39.46 Mixed incontinence; Z98.84 Bariatric surgery status; Z88.5 Allergy status to narcotic agent; Z88.8 Allergy status to other drugs, medicaments and biological substances; Z79.899 Other long term (current) drug therapy; W19.XXXD Unspecified fall, subsequent encounter
CPT/HCPCS: 36415; 80053; 85027; 95851-GO; 97110-GP; 97116-GP; 97164-GP; 97530-GP; 97535-GO; A9270-GY; J1650

== ENCOUNTER 2024-05-05 19:47 | Emergency (ER) | payer MEDICARE, BC ==
[2024-05-05] MEDS ORDERED: Sodium Chloride 0.9% 10 ML Syringe FLUSH PRN (19:58)
[2024-05-05] MEDS: Morphine 2 MG/ML SYRINGE IVPUSH STA (20:15)
[2024-05-05 20:19] LABS: BASOPHILS PERCENT AUTO 0.2 % (0.2-1.2); EOSINOPHILS ABSOLUTE AUTO 0.1 x10^3/uL (0.0-0.5); EOSINOPHILS PERCENT AUTO 2.4 % (0.0-4.0); HEMATOCRIT 37.2 % (33.0-47.0); HEMOGLOBIN 12.7 g/dL (12.0-16.0); IMMATURE GRAN ABSOLUTE AUTO 0.02 x10^3/uL (0.00-0.07); LYMPHOCYTES ABSOLUTE AUTO 1.7 x10^3/uL (1.0-4.8); MEAN CORPUSCULAR HEMOGLOBIN 30.7 pg (26.0-32.0); MEAN CORPUSCULAR HGB CONC 34.1 g/dL (32.0-36.0); MEAN CORPUSCULAR VOLUME 89.9 fL (78.0-93.0); MONOCYTES ABSOLUTE AUTO 0.6 x10^3/uL (0.0-0.8); MONOCYTES PERCENT AUTO 10.8 % (2.0-11.0); NEUTROPHILS PERCENT AUTO 55.2 % (50.0-80.0); PLATELET COUNT,PLT 223 x10^3/uL (130-400); RED BLOOD CELL COUNT 4.14 x10^6/uL (4.00-5.50); WHITE BLOOD CELL COUNT,WBC 5.5 x10^3/uL (4.0-10.0)
[2024-05-05 20:34] LABS: PROTHROMBIN TIME 10.9 SEC (9.6-12.0)
[2024-05-05 20:44] LABS: A/G RATIO 0.97; ALANINE AMINOTRANSFERASE,ALT 35 U/L (14-59); ALBUMIN 3.4 g/dL (3.4-5.0); ALKALINE PHOSPHATASE 75 U/L (46-116); ANION GAP 11.6 mmol/L (5-15); ASPARTATE AMNIOTRANSFERASE,AST 30 U/L (15-37); BILIRUBIN TOTAL 0.6 mg/dL (0.2-1.0); BLOOD UREA NITROGEN,BUN 11 mg/dL (7-18); CALCIUM 7.9 mg/dL (8.5-10.1); CARBON DIOXIDE,CO2 28 mmol/L (21-32); CHLORIDE,CL 106 mmol/L (98-107); CREATININE 0.7 mg/dL (0.55-1.02); ESTIMATED GFR 89 mL/min (>=60); GLUCOSE RANDOM 101 mg/dL (70-99); POTASSIUM,K 3.6 mmol/L (3.5-5.1); PRO B-TYPE NATRIUR PEPT,BNPPRO 1958 pg/mL (<=450); PROTEIN TOTAL,TP 6.9 g/dL (6.4-8.2); SODIUM,NA 142 mmol/L (136-145)
[2024-05-05] MEDS ORDERED: Acetaminophen/HYDROcodone 325-5 MG Tab PO ONE (21:10)
[2024-05-05] MEDS: oxyCODONE 5 MG Tab PO ONE (21:25)
[2024-05-05] MEDS: Take Home: Acetaminophen/oxyCODONE 325-5 MG, 5 Tab Pack PO ONE (22:17)
[2024-05-06 00:42] VITALS: PULSE 55
[2024-05-06 01:20] VITALS: BP 156/63
== END 2024-05-05 22:26 | disposition home or self-care (01) ==
LOC: VM.ED 19:47
DX: S00.83XA Contusion of other part of head, initial encounter (principal); S20.219A Contusion of unspecified front wall of thorax, initial encounter; I11.0 Hypertensive heart disease with heart failure; I50.9 Heart failure, unspecified; I48.91 Unspecified atrial fibrillation; E78.00 Pure hypercholesterolemia, unspecified; Z88.5 Allergy status to narcotic agent; Z88.8 Allergy status to other drugs, medicaments and biological substances; Z79.899 Other long term (current) drug therapy; W01.0XXA Fall on same level from slipping, tripping and stumbling without subsequent striking against object, initial encounter; Y93.89 Activity, other specified
CPT/HCPCS: 36415; 80053; 83735; 83880; 84484; 85025; 85610; 85730; 93005; 96374; 99285; A9270; J2270; 70450; 70486; 71250; 72125; 93010; 99284

== ENCOUNTER 2024-09-25 11:50 | Emergency (ER) | payer MEDICARE, BC ==
[2024-09-25 13:11] VITALS: PULSE 75
[2024-09-25 14:03] VITALS: BP 122/60
== END 2024-09-25 13:56 | disposition home or self-care (01) ==
LOC: VM.ED 11:50
DX: S60.221A Contusion of right hand, initial encounter (principal); I48.91 Unspecified atrial fibrillation; I11.0 Hypertensive heart disease with heart failure; I50.9 Heart failure, unspecified; E78.00 Pure hypercholesterolemia, unspecified; Z88.5 Allergy status to narcotic agent; Z88.8 Allergy status to other drugs, medicaments and biological substances; Z79.899 Other long term (current) drug therapy; W22.8XXA Striking against or struck by other objects, initial encounter; Y93.89 Activity, other specified
CPT/HCPCS: 73130-RT; 99283